=== PATIENT | male | born 1945 | race Caucasian/White ===

== ENCOUNTER 2018-09-11 04:39 | Outpatient (CLI) | payer MEDICARE ==
[2018-09-11 12:32] LABS: #Basophils 0.1 thou/uL (0.0-0.2); #Eosinphils 0.4 thou/uL (0.0-0.7); #Lymphocytes 1.9 thou/uL (1.20-3.40); #Neutrophils 5.6 thou/uL (1.40-6.50); %Basophils 0.7 % (0.0-1.0); %Lymphocytes 21.5 % (21.0-51.0); %Monocytes 10.6 % (0.0-10.0); %Neutrophils 62.3 % (42.0-75.0); Hemoglobin 17.9 g/dL (14.0-18.0); Mean Corpuscular HGB CONC 33.7 g/dL (32.0-36.0); Mean Platelet Volume 7.6 fL (7.4-10.4); Platelet Count 326 thou/uL (130-400); RBC Distribution Width 11.5 % (11.5-14.5); Red Blood Cell (RBC) Count 5.27 mill/uL (4.70-6.10)
[2018-09-11 12:41] LABS: Prothrombin Time 13.3 SEC (12.0-14.7)
[2018-09-11 12:42] LABS: PTT 28.1 SEC (22.9-36.1)
[2018-09-11 12:51] LABS: Anion Gap 8 mmol/L (10-20); BUN (Urea Nitrogen) 12 mg/dL (8.4-25.7); Calc. Creatinine Clearance 0 mL/min (70-130); Calcium 9.9 mg/dL (7.8-10.44); Carbon Dioxide 34 mmol/L (23-31); Chloride 101 mmol/L (98-107); Estimated GFR-MDRD 67; Glucose 114 mg/dL (83-110); Potassium 4.2 mmol/L (3.5-5.1); Sodium 139 mmol/L (136-145)
--- NOTE | 2018-09-12 09:02 | EKG ---
Test Reason : Blood Pressure : / mmHG Vent. Rate : 074 BPM Atrial Rate : 074 BPM P-R Int : 130 ms QRS Dur : 110 ms QT Int : 366 ms P-R-T Axes : 035 006 100 degrees QTc Int : 406 ms Normal sinus rhythm Minimal voltage criteria for LVH, may be normal variant Inferior infarct , age undetermined Cannot rule out Anterior infarct , age undetermined Abnormal ECG When compared with ECG of 05-JUL-2004 10:29, QRS duration has increased Minimal criteria for Anterior infarct are now Present Inferior infarct is now Present T wave inversion more evident in Lateral leads Confirmed by DR. Carolyn ANTONIO ([id number]) on 09/12/2018 9:02:28 AM Referred By: MEGHANA Confirmed By:DR. Carolyn ANTONIO
== END 2018-09-11 04:40 | disposition home or self-care (01) ==
LOC: LABBT 04:39
PROVIDERS: ATTEND Urology
DX: Z01.818 Encounter for other preprocedural examination (principal); N32.9 Bladder disorder, unspecified
CPT/HCPCS: 80048; 85025; 85610; 85730; 93005; 93010

== ENCOUNTER 2018-09-15 06:02 | Day surgery (SDC) | payer MEDICARE ==
[2018-09-11 11:46] VITALS: BMI 30.7
[2018-09-15] MEDS ORDERED: CEFAZOLIN 2 GM/50 ML BAG ONE (06:51)
[2018-09-15] MEDS ORDERED: Fentanyl 100 MCG/2 ML VIAL ONE ×2 (07:20→09:18)
--- NOTE | 2018-09-15 10:28 | OP ---
DATE OF PROCEDURE: 09/15/2018 PREOPERATIVE DIAGNOSES: Bladder lesions, microscopic hematuria. POSTOPERATIVE DIAGNOSES: Bladder lesions, microscopic hematuria, urethral stricture. PROCEDURES PERFORMED: Cystoscopy, bladder biopsy, fulguration, and dilatation of stricture. ANESTHESIA: General. ESTIMATED BLOOD LOSS: Minimal. DRAINS: A 16-Colombian Crook catheter with 20 mL in balloon. FINDINGS: There were 3 areas of abnormal mucosa. One of the posterior wall was biopsied twice and fulgurated. The other two were just fulgurated. 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 DESCRIPTION OF PROCEDURE: Obtained written and verbal consent from the patient after receiving IV antibiotics. After documenting normal preoperative blood work, he was taken to the operating suite. He was placed in the supine position on the treatment table. PlexiPulses were placed on his lower extremities and turned on. He was given a general anesthetic and oral obturator intubation. He was placed in the dorsal lithotomy position. He was sterilely prepped and draped. Cystoscopy was performed with a 22-Colombian sheath. This was well lubricated and passed under direct vision through the male urethra into the urinary bladder. There was a little bit of narrowing and stricture at the junction of the bulb in the membranous urethra. This was also noticed in the office during office cystoscopy. The bladder was filled and emptied number of times being examined with both the 30 and 70-degree lens. Because of the stricture and some lack of ability of up and down mobility, secondarily we switched to the 20-Colombian sheath and did biopsies through that and fulguration of these areas through that using the 30-degree lens. At this point in time, the bladder was drained. The instruments were removed. The Crook catheter was sterilely inserted, sucked up to drainage bag. After 20 mL was placed in the balloon, it was draining clear urine. He was awakened, extubated, and taken by stretcher to recovery room. Job ID: [id number]
[2018-09-15] MEDS ORDERED: Ondansetron PF 4 MG/2 ML Vial ONE (16:34)
[2018-09-15] MEDS ORDERED: Dexamethasone 20 MG/5 ML VIAL ONE (16:34)
[2018-09-15] MEDS ORDERED: PROPOFOL 200 MG/20 ML VIAL ONE (16:34)
[2018-09-15] MEDS ORDERED: Lidocaine 1% PF 5 ML VIAL ONE (16:34)
== END 2018-09-15 10:58 | disposition home or self-care (01) ==
LOC: SDC 06:02
PROVIDERS: ATTEND Urology
PROC: 0TBB8ZX Excision of Bladder, Via Natural or Artificial Opening Endoscopic, Diagnostic (ICD-10-PCS; principal; 2018-09-15)
DX: N32.89 Other specified disorders of bladder (principal); N35.913 Unspecified membranous urethral stricture, male; I10 Essential (primary) hypertension; E78.00 Pure hypercholesterolemia, unspecified; Z88.1 Allergy status to other antibiotic agents; Z79.82 Long term (current) use of aspirin; Z79.899 Other long term (current) drug therapy
CPT/HCPCS: 88305; J1100; J2001; J2405; J2704; J3010